=== PATIENT | female | born 1965 | race American Indian/Alaskan Native ===

== ENCOUNTER 2017-07-25 17:32 | Emergency (ER) | payer OTHER ==
[2017-07-25 17:33] VITALS: BMI 31.8
[2017-07-25 17:47] VITALS: RESP 18; TEMP 98.4
--- NOTE | 2017-07-25 19:02 | ED PDOC ---
Arrival/HPI - General Chief Complaint: Abnormal Skin Integrity Time Seen by Provider: 07/25/17 17:57 - History of Present Illness Narrative History of Present Illness (Text): 07/25/17 18:58 52 yo F complains of a painful mass of gradually increasing size of the L mid back. Patient states that she has had a small mass in that area for several years, that several years ago and had to be incised and drained. Otherwise: (- ) foreign body, (-) fever, (-) chills. (-) recent antibiotic use. PMD [place] Past Medical History - Provider Review Nursing Documentation Reviewed: Yes - Infectious Disease Hx of Infectious Diseases: None - Hematological/Oncological Hx Cancer: Yes (left breast) - Psychiatric Hx Substance Use: No - Surgical History Hx Section: Yes Other/Comment: L breast lumpectomy sec to CA. right chest wall port Family/Social History - Physician Review Nursing Documentation Reviewed: Yes Family/Social History: Unknown Family HX Smoking Status: Never Smoked Hx Alcohol Use: No Hx Substance Use: No Allergies/Home Meds Allergies/Adverse Reactions: Allergies No Known Allergies Allergy (Verified 07/25/17 17:49) Review of Systems - Review of Systems Constitutional: Normal. absent: Fatigue, Weight Change, Fevers Musculoskeletal: Normal. absent: Arthralgias, Back Pain, Neck Pain Skin: Normal, Abscess. absent: Rash, Pruritis, Skin Lesions Physical Exam - Physical Exam Narrative Physical Exam (Text): 07/25/17 19:00 GENERAL APPEARANCE: Patient is awake, alert, oriented x 3, in no acute distress. Skin: warm and dry, +3 x 4 cm erythematous, tender, fluctuant abscess to the L mid back with no surrounding cellulitis. Pulmonary: lungs clear, no rhonchi, no wheezing. Cardiac: regular rate and rhythm, no murmur, no gallop. Abdomen: soft nontender. Extremities: no deformity, full range of motion, no tenderness. Vital Signs Temp Pulse Resp BP Pulse Ox 07/25/17 17:45 98.4 F 73 18 152/84 H 97 Medical Decision Making ED Course and Treatment: 07/25/17 19:00 52 yo F complains of a painful mass of gradually increasing size of the L mid back. On exam, patient noted to have an abscess which needs I&D. Plan : - Bactrim DS - Keflex - I&D Prior to procedure "time out" was called in order to confirm the correct patient and procedure. Through aseptic technique, local anesthesia was administered to abscess, incision and drainage of abscess was performed by PA which produced purulent material. Wound packing was inserted to the wound. Clean dressing was applied. Instructed to return to the ER after 2 days without fail for wound check and packing removal. Advised to take medication as prescribed. Return to the emergency room at any time for any new or worsening symptoms. Patient states she fully agrees with and understands discharge instructions. States that she agrees with the plan and disposition. Verbalized and repeated discharge instructions and plan. I have given the patient opportunity to ask any additional questions. - PA / AVIONICS REPAIR TECHNICIAN / Resident Statement MD/DO has reviewed & agrees with the documentation as recorded. Disposition/Present on Arrival - Present on Arrival Any Indicators Present on Arrival: No History of DVT/PE: No History of Uncontrolled Diabetes: No Urinary Catheter: No History of Decub. Ulcer: No History Surgical Site Infection Following: None - Disposition Have Diagnosis and Disposition been Completed?: Yes Diagnosis: Abscess Disposition: HOME/ ROUTINE Disposition Time: 18:45 Patient Plan: Discharge Patient Problems: Current Active Problems Problem Status Onset Abscess Acute Condition: STABLE Discharge Instructions (ExitCare): Abscess (ED) Print Language: SERBIAN Additional Instructions: Thank you for letting us take care of you today. You were treated for abscess. The emergency medical care you received today was directed at your acute symptoms. If you were prescribed any medication, please fill it and take as directed. It may take several days for your symptoms to resolve. Return to the Emergency Department if your symptoms worsen, do not improve, or if you have any other problems. Please return to the emergency room after 2 days for wound check and packing removal. Bring any paperwork you were given at discharge with you along with any medications you are taking to your follow up visit. Our treatment cannot replace ongoing medical care by a primary care provider (PCP) outside of the emergency department. Thank you for allowing the [facility] team to be part of your care today. Prescriptions: Cephalexin [Keflex] 500 mg PO Q6 #28 capsule Sulfamethoxazole/Trimethoprim [Bactrim DS 800 mg-160 mg] 2 tab PO BID #28 tab
[2017-07-25] MEDS ORDERED: Tmp-Smz 800 mg-160 mg DS Tab PO STA (19:03)
[2017-07-25 19:29] VITALS: BP 142/76; PULSE 78; O2SAT 98
== END 2017-07-25 19:29 | disposition home or self-care (01) ==
LOC: ED 17:32
DX: L02.212 Cutaneous abscess of back [any part, except buttock and flank] (principal)

== ENCOUNTER 2017-07-28 11:34 | Emergency (ER) | payer OTHER ==
[2017-07-28 11:41] VITALS: BMI 32.7
[2017-07-28 11:44] VITALS: BP 127/79; PULSE 65; RESP 17; TEMP 98.8; O2SAT 100
--- NOTE | 2017-07-28 12:04 | ED PDOC ---
Arrival/HPI - General Chief Complaint: Wound Check Time Seen by Provider: 07/28/17 12:01 Historian: Patient - History of Present Illness Narrative History of Present Illness (Text): 07/28/17 12:01 52 yo FEMALE COME IN TO ED FOR SCHEDULED WOUND CHECK AFTER ABSCESS WAS I&D HERE IN ED ON 07/25/17 OVER LEFT MIDBACK. PT ADMITS, PAIN IS IMPROVING, COMPLAINT WITH ANTIBIOTIC THAT WAS GIVEN INITIALLY. OTHERWISE, PT DENIES FEVER, CHILLS, SIGNIFICANT WOUND PAIN OR DISCHARGES, JOON ANY OTHER ACTIVE COMPLAINTS. Past Medical History - Provider Review Nursing Documentation Reviewed: Yes - Travel History Have you recently traveled outside [place] w/in the past 3 mons?: No - Infectious Disease Hx of Infectious Diseases: None - Reproductive Menopause: Yes - Cardiac Hx Cardiac Disorders: No - Pulmonary Hx Respiratory Disorders: No - Neurological Hx Neurological Disorder: No - Renal Hx Renal Disorder: No - Endocrine/Metabolic Hx Endocrine Disorders: No - Hematological/Oncological Hx Cancer: Yes (left breast) - Integumentary Hx Dermatological Disorder: No - Musculoskeletal/Rheumatological Hx Musculoskeletal Disorders: No - Gastrointestinal Hx Gastrointestinal Disorders: No - Genitourinary/Gynecological Hx Genitourinary Disorders: No - Psychiatric Hx Psychophysiologic Disorder: No Hx Substance Use: No - Surgical History Hx Section: Yes Other/Comment: L breast lumpectomy sec to CA. right chest wall port - Anesthesia Hx Anesthesia: Yes Hx Anesthesia Reactions: No Family/Social History - Physician Review Nursing Documentation Reviewed: Yes Family/Social History: No Known Family HX Smoking Status: Never Smoked Hx Alcohol Use: No Hx Substance Use: No Allergies/Home Meds Allergies/Adverse Reactions: Allergies No Known Allergies Allergy (Verified 07/28/17 11:41) Review of Systems - Physician Review All systems were reviewed & negative as marked: Yes - Review of Systems Constitutional: Normal Skin: Skin Lesions Neurological: Normal Endocrine: Normal Hemo/Lymphatic: Normal Psychiatric: Normal Physical Exam Vital Signs Reviewed: Yes Vital Signs Temp Pulse Resp BP Pulse Ox 07/28/17 11:44 98.8 F 65 17 127/79 100 Temperature: Afebrile Blood Pressure: Normal Pulse: Regular Respiratory Rate: Normal Appearance: Positive for: Well-Appearing, Non-Toxic, Comfortable Pain Distress: None Mental Status: Positive for: Alert and Oriented X 3 - Systems Exam Back: No: CVA Tenderness, Midline Tenderness Lower Extremity: Present: Normal ROM. No: Swelling Neurological: Present: GCS=15, Motor Func Grossly Intact, Normal Sensory Function, Norm Deep Tendon Reflexes Skin: Present: Warm, Dry, Normal Color, Abscess (open wound with packing noted Left side midback, mild yellow oozing noted, no edema, no erythema, no flactulance, no proximal streaking.) Lymphatic: No: Axillary Adenopathy Psychiatric: Present: Alert, Oriented x 3 Medical Decision Making ED Course and Treatment: 07/28/17 On re-eval, pt is afebrile, hemodynamicaly stable. Non-toxic. SKin: Wound over Left midback cleaned, packing removed,wound irrigated with NS 20 ml. Wound appears clean, dry, intact. no flactulance, no proximal streaking. Pt advised on wound care. ref. to f/u with PMD, Surgery in 2-3 days for re-evaluation. return to ED if any worsening or new changes. Disposition/Present on Arrival - Present on Arrival Any Indicators Present on Arrival: No History of DVT/PE: No History of Uncontrolled Diabetes: No Urinary Catheter: No History of Decub. Ulcer: No History Surgical Site Infection Following: None - Disposition Have Diagnosis and Disposition been Completed?: Yes Diagnosis: Wound check, abscess Disposition: HOME/ ROUTINE Disposition Time: 12:02 Patient Plan: Discharge Condition: STABLE Discharge Instructions (ExitCare): Abscess Incision and Drainage (ED) Additional Instructions: TAKE MEDICATION-ANTIBIOTIC INITIATED FOLLOW UP WITH PMD, SURGERY IN 2-3 DAYS FOR RE-EVALUATION. RETURN TO ED IF ANY WORSENING OR NEW CHANGES. Referrals: [facility] at [facility] [Outside] - Follow up with primary Alex Forbes MD [Medical Doctor] - Follow up with primary Forms: [employer] (Arabic)
== END 2017-07-28 12:21 | disposition home or self-care (01) ==
LOC: ED 11:34
DX: Z51.89 Encounter for other specified aftercare (principal)